=== PATIENT | female | born 1945 | race Two or more races ===

== ENCOUNTER 2021-05-22 23:34 | Inpatient (IN) | payer OTHER ==
[~2021-05-22] VITALS: Ht 154.9 cm; Wt 88.0 kg
[2021-05-22] MEDS ORDERED: CARDIZEM CD240 MG PO (23:50)
[2021-05-22] MEDS ORDERED: ZESTRIL2.5 MG PO (23:50)
== END 2021-06-01 20:36 | disposition home or self-care (01) | DRG 202 ==
LOC: ER 23:34 → MEDI 05-23 09:30
PROVIDERS: ADMIT Internal Medicine; ATTEND Internal Medicine
PROC: B246ZZZ Ultrasonography of Right and Left Heart (ICD-10-PCS; 2021-05-23)
PROC: 3E0F7SF Introduction of Other Gas into Respiratory Tract, Via Natural or Artificial Opening (ICD-10-PCS; 2021-05-23)
PROC: 3E0F7GC Introduction of Other Therapeutic Substance into Respiratory Tract, Via Natural or Artificial Opening (ICD-10-PCS; 2021-05-23)
PROC: 4A12X4Z Monitoring of Cardiac Electrical Activity, External Approach (ICD-10-PCS; 2021-05-23)
PROC: BW24YZZ Computerized Tomography (CT Scan) of Chest and Abdomen using Other Contrast (ICD-10-PCS; principal; 2021-05-24)
PROC: 4A02XM4 Measurement of Cardiac Total Activity, External Approach (ICD-10-PCS; 2021-05-25)
PROC: 3E073KZ Introduction of Other Diagnostic Substance into Coronary Artery, Percutaneous Approach (ICD-10-PCS; 2021-05-25)
PROC: C2261ZZ Tomographic (Tomo) Nuclear Medicine Imaging of Right and Left Heart using Technetium 99m (Tc-99m) (ICD-10-PCS; 2021-05-25)
DX: J45.901 Unspecified asthma with (acute) exacerbation (principal); J15.8 Pneumonia due to other specified bacteria; B37.1 Pulmonary candidiasis; E66.8 Other obesity; G47.33 Obstructive sleep apnea (adult) (pediatric); I11.9 Hypertensive heart disease without heart failure; E03.9 Hypothyroidism, unspecified; Z20.822 Contact with and (suspected) exposure to COVID-19; F32.9 Major depressive disorder, single episode, unspecified